=== PATIENT | female | born 1940 | race Caucasian/White ===

== ENCOUNTER → 2020-01-20 10:09 | Outpatient (CLI) | payer MEDICARE, BC ==
--- NOTE | 2020-01-22 08:19 | EC ---
PATIENT:JUSTO BANDA DATE OF SERVICE: 01/20/20 SEX: F MEDICAL RECORD: [id number] DATE OF : 38 [facility] AGE [facility] PAT[facility]: 79 ADMISSION DATE: 01/20/20 REFERRING PHYSICIAN: INTERPRETING PHYSICIAN: RACHEAL SEAY MD ECHOCARDIOGRAM REPORT ECHO CHARGES 4 ECHO COMPLETE Date: 01/20/20 CLINICAL DIAGNOSIS: AFIB/MITRAL REGURG ECHOCARDIOGRAPHIC MEASUREMENTS (adult normal given) AC root (d.<3.7cm) 2.3 cm LV Septum d (<1.2 cm> 1.3 cm Valve Excursion 1.7 cm LV Septum (systole) 1.5 cm Left Atria (s.<4.0cm> 4.1 cm LVPW d(<1.2cm) 1.4 cm RV (d.<2.3cm) 4.6 cm LVPW (sytole) 1.5 cm LV diastole(<5.6CM) 5.1 cm MV E-F(>70mm/sec) cm LV systole 3.0 cm LVOT Diameter 1.3 cm MV exc.(>10mm) 1.6 cm Est.ejection fraction (50-75%) % DOPPLER: LVIT cm/sec A 112.0cm/sec E 139.0 cm/sec LA cm/sec RVSP 45 mmHg LVOT 132 cm/sec AOP1/2T m/s Asc. Ao 159 cm/sec RVOT 56 cm/sec RA cm/sec PA 113 cm/sec AV Gradient Peak 10.06mmHg AV Mean 5.20 mmHg AV Area 1.5 cm MV Gradient Peak 10.64mmHg MV Mean 4.26 mmHg MV Area cm COMMENTS: Nurse Intern: 2 LUIGI GONZALEZ Computer Information Systems Professor: 3 Dr. Kruse TAPE# PACS Pericardial Effusion N DATE OF SERVICE: Adequate 2D, color flow imaging, spectral Doppler, and M-Mode. LVH is present. LV internal dimension is normal. Wall motion is normal. EF is greater than or equal to 55%. Aortic valve is sclerosed without evidence of stenosis by Doppler interrogation. Left atrium is upper limits of normal to mildly dilated at 4.1 cm. Mitral valve shows no prolapse. Mild MR. Right-sided chambers are grossly normal. [id number] TR. TRANSINT:[id number] Voice Confirmation ID: [id number] DOCUMENT ID: [id number] ECHOCARDIOGRAM REPORT [id number] JUSTO BANDA,RACHEAL Esquivel MD at 0819 CC: [id number] DICTATION DATE: 01/21/20 1546 LICENSING DIRECTOR: 01/21/202053 [facility] CLI 01/20/20 [place] [id number] [place] [id number]
== END | disposition home or self-care (01) ==
LOC: D.HCCECHO 10:09
PROVIDERS: ATTEND Internal Medicine Cardiovascular Disease
DX: I20.9 Angina pectoris, unspecified (principal); I48.91 Unspecified atrial fibrillation